=== PATIENT | female | born 1990 ===

== ENCOUNTER 2017-03-10 10:32 | Emergency (ER) | payer OTHER ==
--- NOTE | 2017-03-10 10:55 | ED PDOC ---
Lower Extremity Pain/Injury Time Seen by Provider: 03/10/17 10:53 Chief Complaint (Provider): ankle pain History Per: Patient Additional Complaint(s): Patient tripped and fell last night injuring right foot and ankle. She woke up today unable to bear any weight. Patient applied Biofreeze which did not help the pain. She did not take any oral meds for pain relief. No associated numbness or tingling to the affected area. Past Medical History Reviewed: Historical Data, Nursing Documentation, Vital Signs - Medical History PMH: No Chronic Diseases - Surgical History Surgical History: No Surg Hx - Family History Family History: States: No Known Family Hx - Living Arrangements Living Arrangements: With Family - Social History Current smoker - smoking cessation education provided: No Alcohol: Social Drugs: Denies - Allergies Allergies/Adverse Reactions: Allergies Allergy/AdvReac Type Severity Reaction Status Date / Time No Known Allergies Allergy Verified 03/10/17 11:04 Wells Criteria for PE - Wells Criteria for Pulmonary Embolism Clinical Signs and Symptoms of DVT: No P.E is #1 Diagnosis, or Equally Likely: No Heart Rate >100: No Immobilization at least 3 days;Surgery previous 4 weeks: No Previous, objectively diagnosed PE or DVT: No Hemoptysis: No Malignancy w/treatment within 6 months, or palliative: No Total Score: 0 Review of Systems ROS Statement: Except As Marked, All Systems Reviewed And Found Negative Musculoskeletal: Positive for: Foot Pain (right foot and ankle injury) Physical Exam - Reviewed Nursing Documentation Reviewed: Yes Vital Signs Reviewed: Yes - Physical Exam Appears: Positive for: Well, Non-toxic, No Acute Distress Skin: Negative for: Rash Eye Exam: Positive for: Normal appearance Extremity: Positive for: Other (Diffuse swelling and tenderness right foot and ankle with decreased range of motion, normal distal sensation, palpable DP pulse , swelling or tenderness, full range of motion right hip and right knee) Neurologic/Psych: Positive for: Alert, Oriented - Laboratory Results Urine POC: Negative - ECG O2 Sat by Pulse Oximetry: 99 Pulse Ox Interpretation: Normal - Other Rad Right foot and ankle x-ray X-Ray: Interpreted by Me, Viewed By Me X-Ray Interpretation: no fx, no dis Medical Decision Making Medical Decision Makin26 year old with right foot and ankle injury Plan: X-ray right foot and ankle Pain meds declined Patient aware of x-ray results. Crutches were given. See procedure note. Patient referred to podiatry clinic for follow-up. Procedures - Splinting Location: right foot and ankle Pre-Made Type: alessandra wrap, aircast, ortho shoe Pre-Proc Neuro Vasc Exam: normal Post-Proc Neuro Vasc Exam: normal Disposition - Clinical Impression Clinical Impression: Foot sprain, Ankle sprain - Patient ED Disposition Is Patient to be Admitted: No Counseled Patient/Family Regarding: Studies Performed, Diagnosis, Need For Followup - Disposition Referrals: Podiatry Clinic [Outside] Disposition: Routine/Home Disposition Time: 12:49 Condition: STABLE Additional Instructions: Ice, rest and elevate affected area. Take [id number] Tylenol or Advil for pain as needed. Follow-up with podiatry clinic for any persistent symptoms. Instructions: Foot Sprain (ED), Ankle Sprain (ED), Ankle Stirrup Splint (ED), Crutch Instructions (ED)
[2017-03-10 11:08] VITALS: BP 116/63; PULSE 98; RESP 17; TEMP 97; O2SAT 99
--- NOTE | 2017-03-10 14:50 | RAD ---
PROCEDURE: Right Foot Radiographs. HISTORY: trauma COMPARISON: None. FINDINGS: BONES: Normal. No fracture. JOINTS: Normal. SOFT TISSUES: Normal. OTHER FINDINGS: None. IMPRESSION: No acute findings related to/accounting for the clinical presentation. Concordant results with the preliminary interpretation rendered by the emergency department physician procedure.
--- NOTE | 2017-03-10 14:50 | RAD ---
PROCEDURE: Right Ankle Radiographs. HISTORY: trauma COMPARISON: None FINDINGS: BONES: Normal. No fracture. JOINTS: Normal. No osteoarthritis. Ankle mortise maintained. Talar dome intact SOFT TISSUES: Normal. OTHER FINDINGS: None. IMPRESSION: No acute findings related to/accounting for the clinical presentation. Concordant results with the preliminary interpretation rendered by the emergency department physician procedure.
== END 2017-03-10 13:15 | disposition home or self-care (01) ==
LOC: H.ER 10:32
DX: S93.401A Sprain of unspecified ligament of right ankle, initial encounter (principal); X50.9XXA Other and unspecified overexertion or strenuous movements or postures, initial encounter; Y92.89 Other specified places as the place of occurrence of the external cause